=== PATIENT | male | born 1950 | race Caucasian/White ===

== ENCOUNTER 2017-06-06 15:05 | Emergency (ER) | payer OTHER ==
[2017-06-06 15:20] VITALS: BP 144/74
--- NOTE | 2017-06-06 15:23 | EDM.PDOC ---
ED HPI GENERAL MEDICAL PROBLEM - General Chief Complaint: Neuro Symptoms/Deficits Stated Complaint[facility] Time Seen by Provider: 06/06/17 15:59 Source of Information: Reports: Patient History Limitations: Reports: No Limitations - History of Present Illness INITIAL COMMENTS - FREE TEXT/NARRATIVE: lt sided weakness patient states that yesterday while seated in his arm chair he suddenly felt left sided weakness in that he was listing to the left side. Reach over and pull himself back into the seated position. States symptoms didn' t last very long perhaps 5 minutes and then they seem to improve. He said previous strokes 2. He is a mildly prominent right sided hemiparesis. Initially his speech was quite badly affected but is improved dramatically. He had a headache yesterday but nothing today. Denies falls or injuries. He is on blood thinner Plavix. He also takes aspirin daily. [facility] and he [place] if he's had ultrasound of his carotid arteries her MRI of his brain or echocardiogram completed in the past. He has chronic hypertension and quite bad dyslipidemia. He states his balance is better today history of trouble walking. But he certainly no worse than he was yesterday. Note he is walking today on his own volition without any. Onset: Sudden Onset Date: 06/05/17 Onset Time: 14:30 Duration: Hour(s): Location: Reports: Upper Extremity, Left, Lower Extremity, Left Quality: Reports: Other (Sudden onset of left-sided weakness yesterday afternoon.) Severity: Moderate (Symptoms only lasted for 5 minutes.) Improves with: Reports: Other (Spontaneous improvement over for 5 minutes.) Worsens with: Reports: None Context: Denies: Activity, Exercise, Lifting, Sick Contact, Trauma, Other Associated Symptoms: Reports: Cough. 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: Reports: Other (see below) (None.) - Related Data Allergies Allergy/AdvReac Type Severity Reaction Status Date / Time amlodipine Allergy Cannot Verified 07/15/16 15:02 Remember aspirin Allergy Hives Verified 07/15/16 15:02 carvedilol Allergy Cannot Verified 07/15/16 15:02 Remember codeine Allergy Cannot Verified 07/15/16 15:02 Remember lisinopril Allergy Cannot Verified 07/15/16 15:02 Remember meperidine [From Demerol] Allergy Cannot Verified 07/15/16 15:02 Remember Penicillins Allergy Airway Verified 07/15/16 15:02 Tightness thioridazine [From Mellaril] Allergy Cannot Verified 07/15/16 15:02 Remember propanolol. Allergy Cannot Uncoded 07/15/16 15:02 Remember Home Meds: Home Meds Albuterol Sulfate [Proair Respiclick] 2 puff IH Q6H PRN 07/15/16 [History] Allopurinol [Zyloprim] 100 mg PO DAILY 07/15/16 [History] Cholecalciferol (Vitamin D3) [Vitamin D3] 2 tab PO DAILY 07/15/16 [History] Clobetasol Propionate [Temovate] 1 applic TP BID 07/15/16 [History] Clopidogrel [Plavix] 75 mg PO BEDTIME 07/15/16 [History] Docusate Sodium 100 mg PO BID 07/15/16 [History] Donepezil [Aricept] 5 mg PO BEDTIME 07/15/16 [History] Ferrous Sulfate 1 tab PO DAILY 07/15/16 [History] Finasteride [Proscar] 1 tab PO DAILY 07/15/16 [History] Gabapentin [Neurontin] 600 mg PO TID 07/15/16 [History] Lidocaine 4% [Xylocaine 4% Top Soln] 1 applic TP BID PRN 07/15/16 [History] Losartan [Cozaar] 2 tab PO DAILY 07/15/16 [History] Losartan [Cozaar] 25 mg PO DAILY 07/15/16 [History] [place]-3 Fatty Acids [Fish Oil] 1,000 mg PO BID 07/15/16 [History] Omeprazole 20 mg PO BID 07/15/16 [History] Zolpidem Tartrate 10 mg PO BEDTIME PRN 07/15/16 [History] atorvaSTATin Calcium [Atorvastatin Calcium] 0.5 tab PO DAILY 07/15/16 [History] Past Medical History Cardiovascular History: Reports: High Cholesterol, Hypertension Respiratory History: Reports: Asthma, Sleep Apnea Gastrointestinal History: Reports: GERD, PUD Musculoskeletal History: Reports: Gout Neurological History: Reports: CVA (2 with right hemiparesis and impaired speech transiently.), Migraines Psychiatric History: Reports: Dementia - Past Surgical History GI Surgical History: Reports: Appendectomy, Hernia, Abdominal Musculoskeletal Surgical History: Reports: Arthroscopic Knee, Shoulder Surgery Social & Family History - Tobacco Use Smoking Status *Q: Former Smoker - Caffeine Use Caffeine Use: Reports: Coffee - Recreational Drug Use Recreational Drug Use: No - Living Situation & Occupation Living situation: Reports: Occupation: Retired ED ROS GENERAL - Review of Systems Review Of Systems: See Below Constitutional: Reports: Malaise, Weakness, Fatigue. Denies: Fever, Chills, Night Sweats, Diaphoresis, Decreased Appetite, Weight Loss, Weight Gain HEENT: Reports: Glasses, Vision Change (States he can't see out of his right eye since his initial stroke.) Respiratory: Reports: Shortness of Breath (On exertion), Cough Cardiovascular: Reports: Blood Pressure Problem, Dyspnea on Exertion ( Chronically), Lightheadedness. Denies: Chest Pain (Occasional cough.), Claudication, Edema (Sometimes), Orthopnea (Usually well-controlled with medication) Endocrine: Reports: Fatigue GI/Abdominal: Reports: Constipation : Reports: Frequency, Other (Nocturia 3.) Musculoskeletal: Reports: Back Pain (Knees and hips), Joint Pain Skin: Reports: No Symptoms ( back pain), Bruising (Bruises easily because of being on Plavix and aspirin.) Neurological: Reports: Dizziness, Headache, Difficulty Walking (Right side due to right-sided weakness.), Weakness, Gait Disturbance (Since initial stroke.). Denies: Confusion, Numbness, Paresthesia, Syncope (Yesterday but not today), Tingling, Tremors, Trouble Speaking, Change in Speech Psychiatric: Reports: No Symptoms Hematologic/Lymphatic: Reports: No Symptoms Immunologic: Reports: No Symptoms ED EXAM, NEURO - Physical Exam Exam: See Below Exam Limited By: No Limitations General Appearance: Alert, WD/WN, No Apparent Distress Eye Exam: Bilateral Eye: PERRL Throat/Mouth: Normal Inspection, Normal Lips, Normal Oropharynx Head Exam: Atraumatic, Normocephalic Neck: Normal Inspection, Supple, Non-Tender, Full Range of Motion. No: Lymphadenopathy (L), Lymphadenopathy (R) Respiratory/Chest: No Respiratory Distress, Lungs Clear, Normal Breath Sounds, No Accessory Muscle Use Cardiovascular: Normal Peripheral Pulses, Regular Rate, Rhythm, No Edema, No Murmur GI/Abdominal: Normal Bowel Sounds, Soft, Non-Tender, No Organomegaly, No Distention, No Abnormal Bruit, No Mass Neurological: Alert, Normal Mood/Affect, Normal Dorsiflexion, CN II-XII Intact, Normal Plantar Flexion, Normal Reflexes, Oriented x 3, Difficulty Walking. No: Babinski, Straight Leg Raise (L), Straight Leg Raise (R) DTR: 0: Achilles (R), Achilles (L), 1+: Patella (R), Patella (L) Back Exam: Normal Inspection, Full Range of Motion Extremities: Normal Inspection, Normal Range of Motion, No Pedal Edema Psychiatric: Normal Affect, Normal Mood Skin Exam: Warm, Dry, Intact, Normal Color, No Rash EKG INTERPRETATION EKG Date: 06/06/17 Time: 15:40 Rhythm: Other Rate (Beats/Min): 60 [place]: Normal P-Wave: Absent QRS: Other (Initial poor R-wave progression.) ST-T: Normal QT: Prolonged (Mildly prolonged) EKG Interpretation Comments: Abnormal ECG Course - Vital Signs Last Recorded V/S: Last Vital Signs Temp 36.1 C 06/06/17 15:19 Pulse 73 06/06/17 15:19 Resp 20 06/06/17 15:19 BP 144/74 H 06/06/17 15:19 Pulse Ox 96 06/06/17 15:19 - Orders/Labs/Meds Orders: Active Orders 24 hr Category Date Time Status EKG Documentation Completion [RC] STAT Care 06/06/17 15:25 Active Peripheral IV Care [RC] . DIRECTED Care 06/06/17 15:26 Active Sodium Chloride 0.9% [Saline Flush] Med 06/06/17 15:26 Active 10 ml FLUSH ASDIRECTED PRN Peripheral IV Insertion Adult [OM.PC] Stat Oth 06/06/17 15:26 Ordered Medication Orders Sodium Chloride (Saline Flush) 10 ml FLUSH ASDIRECTED PRN PRN Reason: Keep Vein Open Labs: Laboratory Tests 06/06/17 06/06/17 06/06/17 Range/Units 15:16 15:16 15:16 WBC 7.12 (4.23-9.07) K/mm3 RBC 4.99 (4.63-6.08) M/mm3 Hgb 14.6 (13.7-17.5) gm/L Hct 42.6 (40.1-51.0) % MCV 85.4 (79.0-92.2) fl MCH 29.3 (25.7-32.2) pg MCHC 34.3 (32.2-35.5) g/dl RDW Std Deviation 40.9 (35.1-43.9) fL Plt Count 185 (163-337) K/mm3 MPV 10.2 (9.4-12.3) fl Neutrophils % (Manual) 53 (40-60) % Band Neutrophils % 0 (0-10) % Lymphocytes % (Manual) 36 (20-40) % Atypical Lymphs % 0 % Monocytes % (Manual) 8 (2-10) % Eosinophils % (Manual) 1 (0.8-7.0) % Basophils % (Manual) 2 H (0.2-1.2) Platelet Estimate Adequate RBC Morph Comment Normal PT 9.6 (8.0-13.0) SECONDS INR 0.89 APTT 26 (22-36) SECONDS Sodium 141 (136-145) mEq/L Potassium 3.8 (3.5-5.1) mEq/L Chloride 107 (98-107) mEq/L Carbon Dioxide 23 (21-32) mEq/L Anion Gap 14.8 (5-15) BUN 19 H (7-18) mg/dL Creatinine 1.5 H (0.7-1.3) mg/dL Est Cr Clr Drug Dosing TNP Estimated GFR (MDRD) 47 (>60) mL/min BUN/Creatinine Ratio 12.7 L (14-18) Glucose 134 H (80-115) mg/dL POC Glucose (80-115) mg/dL Calcium 8.8 (8.5-10.1) mg/dL Total Bilirubin 0.3 (0.2-1.0) mg/dL AST 15 (15-37) U/L ALT 29 (16-63) U/L Alkaline Phosphatase 109 (46-116) U/L NT-Pro-B Natriuret Pep (0-125) pg/mL Total Protein 6.9 (6.4-8.2) g/dl Albumin 3.5 (3.4-5.0) g/dl Globulin 3.4 gm/dL Albumin/Globulin Ratio 1.0 (1-2) 06/06/17 06/06/17 Range/Units 15:16 15:27 WBC (4.23-9.07) K/mm3 RBC (4.63-6.08) M/mm3 Hgb (13.7-17.5) gm/L Hct (40.1-51.0) % MCV (79.0-92.2) fl MCH (25.7-32.2) pg MCHC (32.2-35.5) g/dl RDW Std Deviation (35.1-43.9) fL Plt Count (163-337) K/mm3 MPV (9.4-12.3) fl Neutrophils % (Manual) (40-60) % Band Neutrophils % (0-10) % Lymphocytes % (Manual) (20-40) % Atypical Lymphs % % Monocytes % (Manual) (2-10) % Eosinophils % (Manual) (0.8-7.0) % Basophils % (Manual) (0.2-1.2) Platelet Estimate RBC Morph Comment PT (8.0-13.0) SECONDS INR APTT (22-36) SECONDS Sodium (136-145) mEq/L Potassium (3.5-5.1) mEq/L Chloride (98-107) mEq/L Carbon Dioxide (21-32) mEq/L Anion Gap (5-15) BUN (7-18) mg/dL Creatinine (0.7-1.3) mg/dL Est Cr Clr Drug Dosing Estimated GFR (MDRD) (>60) mL/min BUN/Creatinine Ratio (14-18) Glucose (80-115) mg/dL POC Glucose 110 (80-115) mg/dL Calcium (8.5-10.1) mg/dL Total Bilirubin (0.2-1.0) mg/dL AST (15-37) U/L ALT (16-63) U/L Alkaline Phosphatase (46-116) U/L NT-Pro-B Natriuret Pep 15 (0-125) pg/mL Total Protein (6.4-8.2) g/dl Albumin (3.4-5.0) g/dl Globulin gm/dL Albumin/Globulin Ratio (1-2) Meds: Medications Generic Name Dose Route Start Last Admin Trade Name Freq PRN Reason Stop Dose Admin Sodium Chloride 10 ml 06/06/17 15:26 Saline Flush FLUSH ASDIRECTED PRN Keep Vein Open - Radiology Interpretation Free Text/Narrative:: 58-year-old male presents to the ED with strokelike symptoms. He reports that yesterday while seated in his easy chair he did develop sudden onset of listing to the left side. It help his arm back into his lap. States his symptoms lasted less than 5 minutes and seemed to improve. He contacted the [facility] whom advised him to seek emergency medicine care. When Yadi called today he decided to take their advice and he showed up in the ED. He states now he is no worse than he was yesterday his balances better than it was yesterday after this event. He said previous CVA 2 with right-sided hemiparesis. Initially he had some quite marked dysarthria with his initial stroke (returned nearly to completely normal. He denies any falls or recent closed head injuries. He remains on aspirin and Plavix daily. Plan CT head to be done routine labs ECG. - Re-Assessments/Exams Free Text/Narrative Re-Assessment/Exam: 06/06/17 16:00 CT does suggest a small petechial hemorrhage in the left periventricular white matter posterior to the basal ganglia. Hounsfield units suggest measurement of blood not calcification. No other intracranial findings of hemorrhage are identified. His ECG reveals atrial paced rhythm at 60/m. 06/06/1628:Labs are back. White count is 7.12 with 53% neutrophils and no bands. Hemoglobin is good at 14.6 with hematocrit of 42.6. Platelets are 185, 000. PT is 9.6 INR 0.89 PTT is 26. Sodium 141 potassium 3.8. Cord 107 bicarbonate 23. And a gap is 14.8 BUNs 19 creatinine is 1.5. EGFR is 47. Glucose 134 the remainder the chemistry is normal. 06/06/17 16:54 Medlist reveals that he is on Plavix but he does not have any stents and it sounds like he was placed on it because his heart failure and his poor ejection fraction. I therefore would withhold for 5 days until the intracranial bleed settles down. Departure - Departure Time of Disposition: 17:01 Disposition: Home, Self-Care 01 Condition: Fair Clinical Impression: Cerebrovascular accident - Discharge Information Referrals: Alva Roach DO [Primary Care Provider] - Forms: ED Department Discharge Additional Instructions: Evaluation the emergent today in regards to sudden onset of with this while sitting in your easy chair a few days ago. He with a disrupted balance for a few days but today you feel back to near normal. On the advice of the [facility] you tend to the ED. History of strokes 2 in the past. Atrial paced rhythm for your heart. CT of the brain revealed a pinpoint hemorrhage in the right parietal lobe near the basal ganglia which could've accounted for your symptoms. It is very small at this time and since you are not having any major deficits at this time I'm going to allow you to go home. Your lab work also proved to be completely normal. Treatment is to stop the Plavix for the next 5 days and then you may resume it as of next Friday. Needs to be done with your parts consultant to see whether or not she wanted to continue with this medication or whether you can convert to aspirin only. Has a lot of hot whether or not you had blood clots in the past and how well your heart is pumping. It comes down to a risk-benefit ratio and should be made by the safety compliance specialist after echocardiogram is completed. All other medications at this time are to be continued. - My Orders Last 24 Hours: My Active Orders 06/06/17 15:25 EKG Documentation Completion [RC] STAT 06/06/17 15:26 Peripheral IV Care [RC] . DIRECTED Sodium Chloride 0.9% [Saline Flush] 10 ml FLUSH ASDIRECTED PRN Peripheral IV Insertion Adult [OM.PC] Stat - Assessment/Plan Last 24 Hours: My Active Orders 06/06/17 15:25 EKG Documentation Completion [RC] STAT 06/06/17 15:26 Peripheral IV Care [RC] . DIRECTED Sodium Chloride 0.9% [Saline Flush] 10 ml FLUSH ASDIRECTED PRN Peripheral IV Insertion Adult [OM.PC] Stat
[2017-06-06] MEDS ORDERED: Sodium Chloride 0.9% 10 ML Syringe FLUSH PRN (15:26)
--- NOTE | 2017-06-06 15:46 | CT ---
Head CT Technique: Multiple axial sections through the brain were obtained. Comparison: No previous intracranial imaging. Findings: Ventricles along the basal cisterns and sulci over convexities are mildly prominent. Small high density dot is noted within the left periventricular white matter having Hounsfield unit measurements of blood and not calcification. Very minimal petechial hemorrhage is possible. No other findings of intracranial hemorrhage are seen. No midline shift or mass effect is seen. No other abnormal parenchymal densities are seen. Impression: 1. Possible small petechial hemorrhage within the left periventricular white matter. 2. No additional abnormality is identified on noncontrast head CT study. Given the patient's symptoms, MRI could be considered to further evaluate. Diagnostic code #5
== END 2017-06-06 17:20 | disposition home or self-care (01) ==
LOC: JD.ED 15:05
DX: I63.9 Cerebral infarction, unspecified (principal); I10 Essential (primary) hypertension; Z88.8 Allergy status to other drugs, medicaments and biological substances; Z88.0 Allergy status to penicillin; Z88.6 Allergy status to analgesic agent; Z79.899 Other long term (current) drug therapy; Z87.891 Personal history of nicotine dependence
CPT/HCPCS: 36415; 70450; 70450-26; 80053; 82962; 83880; 85025; 85610; 85730; 93005; 93010; 99285; 99285-25

== ENCOUNTER 2017-09-14 17:33 | Emergency (ER) | payer OTHER ==
[2017-09-14] MEDS ORDERED: Sodium Chloride 0.9% 10 ML Syringe FLUSH PRN (17:43)
[2017-09-14 17:51] VITALS: BP 168/84
--- NOTE | 2017-09-14 18:15 | CT ---
Head CT Technique: Multiple axial sections through the brain were obtained. Intravenous contrast was not utilized. Comparison: Prior head CT exam of 06/06/17. Findings: Ventricles along with basal cisterns and sulci over the convexities are mildly prominent. Small area of increased density is seen within the left periventricular white matter within the parietal region which is stable from prior exam. No other abnormal parenchymal densities are seen. No evidence of intracranial hemorrhage. No midline shift or mass effect is seen. Bone window settings were reviewed which shows no acute calvarial abnormality. Visualized sinuses are clear. Impression: 1. Minimal area of increased density which on prior study was felt to represent small petechial hemorrhage but remains stable on current exam which is therefore compatible with small area of incidental dystrophic calcification. 2. Mild atrophy is seen. 3. No acute intracranial abnormality is identified. Diagnostic code #2
--- NOTE | 2017-09-14 19:03 | EDM.PDOC ---
ED HPI GENERAL MEDICAL PROBLEM - General Chief Complaint: General Stated Complaint: R EYE PAIN Time Seen by Provider: 09/14/17 17:42 Source of Information: Reports: Patient History Limitations: Reports: No Limitations - History of Present Illness INITIAL COMMENTS - FREE TEXT/NARRATIVE: The patient presents with right ear pain and right sided facial weakness. He said yesterday he noticed pain to the right ear over the tragus. The pain has gotten worse and now he has more pain and edema behind he ear. This morning he developed right sided facial weakness. He cannot move his right forehead and he cannot close his eyelid. When he drinks the liquids would come out the right side of his mouth. He denies numbness or weakness in his arms or legs. He has no fever, chills, cough, chest pain, shortness of breath, abdominal pain , nausea or vomiting. He says he has had a stroke before and also [place] palsey. Onset: Gradual Duration: Hour(s): Location: Reports: Face Quality: Reports: Sharp Severity: Moderate Improves with: Reports: None Worsens with: Reports: None Associated Symptoms: Reports: No Other Symptoms Right Ear Pain Score (Numeric/FACES): 8 - Related Data Allergies Allergy/AdvReac Type Severity Reaction Status Date / Time amlodipine Allergy Cannot Verified 07/15/16 15:02 Remember aspirin Allergy Hives Verified 07/15/16 15:02 carvedilol Allergy Cannot Verified 07/15/16 15:02 Remember codeine Allergy Cannot Verified 07/15/16 15:02 Remember lisinopril Allergy Cannot Verified 07/15/16 15:02 Remember meperidine [From Demerol] Allergy Cannot Verified 07/15/16 15:02 Remember Penicillins Allergy Airway Verified 07/15/16 15:02 Tightness thioridazine [From Mellaril] Allergy Cannot Verified 07/15/16 15:02 Remember propanolol. Allergy Cannot Uncoded 07/15/16 15:02 Remember Home Meds: Home Meds Albuterol Sulfate [Proair Respiclick] 2 puff IH Q6H PRN 07/15/16 [History] Allopurinol [Zyloprim] 100 mg PO DAILY 07/15/16 [History] Cholecalciferol (Vitamin D3) [Vitamin D3] 2 tab PO DAILY 07/15/16 [History] Clobetasol Propionate [Temovate] 1 applic TP BID 07/15/16 [History] Clopidogrel [Plavix] 75 mg PO BEDTIME 07/15/16 [History] Docusate Sodium 100 mg PO BID 07/15/16 [History] Donepezil [Aricept] 5 mg PO BEDTIME 07/15/16 [History] Ferrous Sulfate 1 tab PO DAILY 07/15/16 [History] Finasteride [Proscar] 1 tab PO DAILY 07/15/16 [History] Gabapentin [Neurontin] 600 mg PO TID 07/15/16 [History] Lidocaine 4% [Xylocaine 4% Top Soln] 1 applic TP BID PRN 07/15/16 [History] Losartan [Cozaar] 2 tab PO DAILY 07/15/16 [History] Losartan [Cozaar] 25 mg PO DAILY 07/15/16 [History] [place]-3 Fatty Acids [Fish Oil] 1,000 mg PO BID 07/15/16 [History] Omeprazole 20 mg PO BID 07/15/16 [History] Zolpidem Tartrate 10 mg PO BEDTIME PRN 07/15/16 [History] atorvaSTATin Calcium [Atorvastatin Calcium] 0.5 tab PO DAILY 07/15/16 [History] Hydrocodone/Acetaminophen [Hydrocodon-Acetaminophen 5-325] 1 - 2 each PO Q6HR PRN #20 tablet 09/14/17 [Rx] Prednisone [IJD: predniSONE] 60 mg PO WITHBREAKFAST #21 tab 09/14/17 [Rx] valACYclovir HCl [Valacyclovir] 1,000 mg PO TID #21 tablet 09/14/17 [Rx] Past Medical History Cardiovascular History: Reports: High Cholesterol, Hypertension Other Cardiovascular History: dual chamber Respiratory History: Reports: Asthma, Sleep Apnea Gastrointestinal History: Reports: GERD, PUD Musculoskeletal History: Reports: Gout, Other (See Below) Other Musculoskeletal History: neuropathy Neurological History: Reports: CVA, Migraines Psychiatric History: Reports: Dementia - Past Surgical History HEENT Surgical History: Reports: Tonsillectomy GI Surgical History: Reports: Appendectomy, Hernia, Abdominal Musculoskeletal Surgical History: Reports: Arthroscopic Knee, Shoulder Surgery Social & Family History - Family History Family Medical History: Noncontributory - Tobacco Use Smoking Status *Q: Former Smoker Used Tobacco, but Quit: Yes Month Tobacco Last Used: 30 years ago - Caffeine Use Caffeine Use: Reports: Coffee - Recreational Drug Use Recreational Drug Use: No - Living Situation & Occupation Living situation: Reports: Occupation: Retired ED ROS GENERAL - Review of Systems Review Of Systems: See Below Constitutional: Reports: No Symptoms HEENT: Reports: Eye Pain Respiratory: Reports: No Symptoms Cardiovascular: Reports: No Symptoms Endocrine: Reports: No Symptoms GI/Abdominal: Reports: No Symptoms : Reports: No Symptoms Musculoskeletal: Reports: No Symptoms Skin: Reports: Other (Rash to right ear) ED EXAM, GENERAL - Physical Exam Exam: See Below Exam Limited By: No Limitations General Appearance: Alert, No Apparent Distress Eye Exam: Bilateral Eye: EOMI, PERRL Ears: Other (Small lesion to the tragus with erythema and edema to behind the right ear. Normal canal and normal TM) Nose: Normal Inspection Throat/Mouth: Normal Inspection Head: Atraumatic, Normocephalic Neck: Normal Inspection Respiratory/Chest: No Respiratory Distress, Lungs Clear, Normal Breath Sounds Cardiovascular: Regular Rate, Rhythm, No Edema, No Murmur GI/Abdominal: Soft, Non-Tender, No Organomegaly, No Mass Back Exam: Normal Inspection Extremities: Normal Inspection Neurological: Alert, Oriented, Other (He cannot move his right forehead. He has right sided facial droop. He has no numbnes or weakness to his arms or legs.) EKG INTERPRETATION EKG Date: 09/14/17 Time: 18:35 Rhythm: Other (atrial paced rhythm) Course - Vital Signs Last Recorded V/S: Last Vital Signs Temp 97.2 F 09/14/17 17:43 Pulse 76 09/14/17 17:43 Resp 18 09/14/17 17:43 BP 168/84 H 09/14/17 17:43 Pulse Ox 95 09/14/17 17:43 - Orders/Labs/Meds Orders: Active Orders 24 hr Category Date Time Status Cardiac Monitoring [RC] . DIRECTED Care 09/14/17 17:43 Active EKG Documentation Completion [RC] STAT Care 09/14/17 17:43 Active Peripheral IV Care [RC] . DIRECTED Care 09/14/17 17:44 Active Acetaminophen/HYDROcodone [[place] 325-5 MG] Med 09/14/17 19:19 Once 2 tab PO ONETIME ONE Sodium Chloride 0.9% [Saline Flush] Med 09/14/17 17:43 Active 10 ml FLUSH ASDIRECTED PRN Peripheral IV Insertion Adult [OM.PC] Stat Oth 09/14/17 17:43 Ordered Medication Orders Sodium Chloride (Saline Flush) 10 ml FLUSH ASDIRECTED PRN PRN Reason: Keep Vein Open Labs: Laboratory Tests 09/14/17 09/14/17 09/14/17 Range/Units 17:49 17:50 17:50 WBC 5.37 (4.23-9.07) K/mm3 RBC 4.86 (4.63-6.08) M/mm3 Hgb 14.4 (13.7-17.5) gm/L Hct 42.1 (40.1-51.0) % MCV 86.6 (79.0-92.2) fl MCH 29.6 (25.7-32.2) pg MCHC 34.2 (32.2-35.5) g/dl RDW Std Deviation 41.9 (35.1-43.9) fL Plt Count 210 (163-337) K/mm3 MPV 9.7 (9.4-12.3) fl Neut % (Auto) 46.8 (34.0-67.9) % Lymph % (Auto) 38.9 (21.8-53.1) % [place] % (Auto) 11.7 (5.3-12.2) % Eos % (Auto) 2.0 (0.8-7.0) Baso % (Auto) 0.4 (0.1-1.2) % Neut # (Auto) 2.51 (1.78-5.38) K/mm3 Lymph # (Auto) 2.09 (1.32-3.57) K/mm3 [place] # (Auto) 0.63 (0.30-0.82) K/mm3 Eos # (Auto) 0.11 (0.04-0.54) K/mm3 Baso # (Auto) 0.02 (0.01-0.08) K/mm3 PT 9.7 (8.0-13.0) SECONDS INR 0.90 APTT 26 (22-36) SECONDS Sodium (136-145) mEq/L Potassium (3.5-5.1) mEq/L Chloride (98-107) mEq/L Carbon Dioxide (21-32) mEq/L Anion Gap (5-15) BUN (7-18) mg/dL Creatinine (0.7-1.3) mg/dL Est Cr Clr Drug Dosing mL/min Estimated GFR (MDRD) (>60) mL/min BUN/Creatinine Ratio (14-18) Glucose (80-115) mg/dL POC Glucose 107 (80-115) mg/dL Calcium (8.5-10.1) mg/dL Total Bilirubin (0.2-1.0) mg/dL AST (15-37) U/L ALT (16-63) U/L Alkaline Phosphatase (46-116) U/L Troponin I (0.00-0.056) ng/mL Total Protein (6.4-8.2) g/dl Albumin (3.4-5.0) g/dl Globulin gm/dL Albumin/Globulin Ratio (1-2) 09/14/17 Range/Units 17:50 WBC (4.23-9.07) K/mm3 RBC (4.63-6.08) M/mm3 Hgb (13.7-17.5) gm/L Hct (40.1-51.0) % MCV (79.0-92.2) fl MCH (25.7-32.2) pg MCHC (32.2-35.5) g/dl RDW Std Deviation (35.1-43.9) fL Plt Count (163-337) K/mm3 MPV (9.4-12.3) fl Neut % (Auto) (34.0-67.9) % Lymph % (Auto) (21.8-53.1) % [place] % (Auto) (5.3-12.2) % Eos % (Auto) (0.8-7.0) Baso % (Auto) (0.1-1.2) % Neut # (Auto) (1.78-5.38) K/mm3 Lymph # (Auto) (1.32-3.57) K/mm3 [place] # (Auto) (0.30-0.82) K/mm3 Eos # (Auto) (0.04-0.54) K/mm3 Baso # (Auto) (0.01-0.08) K/mm3 PT (8.0-13.0) SECONDS INR APTT (22-36) SECONDS Sodium 142 (136-145) mEq/L Potassium 4.0 (3.5-5.1) mEq/L Chloride 106 (98-107) mEq/L Carbon Dioxide 25 (21-32) mEq/L Anion Gap 15.0 (5-15) BUN 11 (7-18) mg/dL Creatinine 1.4 H (0.7-1.3) mg/dL Est Cr Clr Drug Dosing 45.57 mL/min Estimated GFR (MDRD) 50 (>60) mL/min BUN/Creatinine Ratio 7.9 L (14-18) Glucose 114 (80-115) mg/dL POC Glucose (80-115) mg/dL Calcium 8.6 (8.5-10.1) mg/dL Total Bilirubin 0.3 (0.2-1.0) mg/dL AST 22 (15-37) U/L ALT 33 (16-63) U/L Alkaline Phosphatase 115 (46-116) U/L Troponin I < 0.017 (0.00-0.056) ng/mL Total Protein 7.3 (6.4-8.2) g/dl Albumin 3.5 (3.4-5.0) g/dl Globulin 3.8 gm/dL Albumin/Globulin Ratio 0.9 L (1-2) Meds: Medications Generic Name Dose Route Start Last Admin Trade Name Freq PRN Reason Stop Dose Admin Sodium Chloride 10 ml 09/14/17 17:43 Saline Flush FLUSH ASDIRECTED PRN Keep Vein Open Discontinued Medications Generic Name Dose Route Start Last Admin Trade Name Freq PRN Reason Stop Dose Admin Prednisone 60 mg 09/14/17 19:13 Prednisone PO 09/14/17 19:14 ONETIME ONE Valacyclovir HCl 1,000 mg 09/14/17 19:13 Valtrex PO 09/14/17 19:14 ONETIME ONE - Re-Assessments/Exams Free Text/Narrative Re-Assessment/Exam: 09/14/17 19:10 I ordered an IV saline lock, EKG, CT of his head and labs. His EKG is paced. His CT shows minimal area of increased density which on prior study was felt to represent small petechial hemorrhage but remains stable on current exam which is therefore compatible with small area of incidental dystrophic calcification. Mild atrophy is seen. No acute intracranial abnormality is identified. His CBC and CMP look good. His troponin was negative. 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 I will give him a dose of valacyclivir and some prednisone. I will then get him on a prescription for both. Departure - Departure Time of Disposition: 19:20 Disposition: Home, Self-Care 01 Condition: Good Clinical Impression: Mcgregor's palsy Shingles Qualifiers: Herpes zoster complications: with nervous system involvement Herpes zoster neurologic complication detail: other postherpetic nervous system involvement Qualified Code(s): B02.29 - Other postherpetic nervous system involvement - Discharge Information Prescriptions: Hydrocodone/Acetaminophen [Hydrocodon-Acetaminophen 5-325] 1 - 2 each PO Q6HR PRN #20 tablet PRN Reason: Pain Prednisone [IJD: predniSONE] 60 mg PO WITHBREAKFAST #21 tab valACYclovir HCl [Valacyclovir] 1,000 mg PO TID #21 tablet Referrals: Alva Roach DO [Primary Care Provider] - 1 Week Forms: ED Department Discharge Additional Instructions: Take the prednisone 60mg daily for 1 week. Take the valacyclivir 1,00mg 3 times per day for 1 week. Take the hydrocodone as needed for pain. Put antibiotic ointment on the sore on your ear to avoid infection. Please return if you are worse. Follow up with Dr Roach this week. - My Orders Last 24 Hours: My Active Orders 09/14/17 17:43 Cardiac Monitoring [RC] . DIRECTED EKG Documentation Completion [RC] STAT Sodium Chloride 0.9% [Saline Flush] 10 ml FLUSH ASDIRECTED PRN Peripheral IV Insertion Adult [OM.PC] Stat 09/14/17 17:44 Peripheral IV Care [RC] . DIRECTED 09/14/17 19:19 Acetaminophen/HYDROcodone [[place] 325-5 MG] 2 tab PO ONETIME ONE - Assessment/Plan Last 24 Hours: My Active Orders 09/14/17 17:43 Cardiac Monitoring [RC] . DIRECTED EKG Documentation Completion [RC] STAT Sodium Chloride 0.9% [Saline Flush] 10 ml FLUSH ASDIRECTED PRN Peripheral IV Insertion Adult [OM.PC] Stat 09/14/17 17:44 Peripheral IV Care [RC] . DIRECTED 09/14/17 19:19 Acetaminophen/HYDROcodone [[place] 325-5 MG] 2 tab PO ONETIME ONE
[2017-09-14] MEDS ORDERED: predniSONE 20 MG Tab PO ONE (19:13)
[2017-09-14] MEDS ORDERED: valACYclovir 1,000 MG Tab PO ONE (19:13)
[2017-09-14] MEDS ORDERED: Acetaminophen/HYDROcodone 325-5 MG Tab PO ONE (19:19)
[2017-09-14] MEDS ORDERED: Take Home: Acetaminophen/HYDROcodone 325-5 MG, 5 Tab Pack ONE (19:45)
[2017-09-14] MEDS ORDERED: valACYclovir 500 MG Tab PO ONE (20:06)
[2017-09-14] MEDS ORDERED: valACYclovir 500 MG Tab ONE (20:10)
== END 2017-09-14 20:08 | disposition home or self-care (01) ==
LOC: JD.ED 17:33
DX: G51.0 Bell's palsy (principal); B02.29 Other postherpetic nervous system involvement; E78.00 Pure hypercholesterolemia, unspecified; I10 Essential (primary) hypertension; J45.909 Unspecified asthma, uncomplicated; Z88.6 Allergy status to analgesic agent; Z88.8 Allergy status to other drugs, medicaments and biological substances; Z88.5 Allergy status to narcotic agent; Z88.0 Allergy status to penicillin; Z79.899 Other long term (current) drug therapy; Z87.891 Personal history of nicotine dependence
CPT/HCPCS: 36415; 70450; 80053; 82962; 84484; 85025; 85610; 85730; 93005; 99284; A9270; J7050

== ENCOUNTER 2021-09-12 07:42 | Day surgery (SDC) | payer MEDICARE, OTHER ==
[~2021-09-12 07:42] MED LIST: Acetaminophen 325 MG Tab PO SCH; Dexamethasone 4 MG/ML 5 ML MDV ONE; Dexmedetomidine 200 MCG/2 ML SDV ONE; Lactated Ringers 1,000 ML IV SCH; Lidocaine 1%/Sod Bicarbonate in NS 8.4% 1 ML Syringe IDERM PRN; Midazolam 1 MG/ML 2 ML SDV ONE; Pregabalin 25 MG Cap PO SCH; Ropivacaine 0.5% 5 MG/ML 30 ML SDV ONE; Sodium Chloride 0.9% 10 ML Syringe FLUSH PRN; fentaNYL 100 MCG/2 ML SDV ONE; oxyCODONE ER 10 MG TAB.ER PO SCH
[2021-09-12] MEDS ORDERED: Vancomycin 1 GM SDV ONE ×2 (08:25)
[2021-09-12 08:33] VITALS: PULSE 60
[2021-09-12] MEDS ORDERED: Propofol 200 MG/20 ML SDV ONE ×2 (08:56→10:00)
[2021-09-12] MEDS ORDERED: Sodium Chloride 0.9% 10 ML Syringe FLUSH SCH (09:00)
[2021-09-12] MEDS ORDERED: ceFAZolin 1 GM Vial ONE (09:21)
[2021-09-12] MEDS ORDERED: Lidocaine 1% 2 ML ONE (09:23)
[2021-09-12] MEDS ORDERED: fentaNYL 100 MCG/2 ML SDV IVPUSH PRN (10:37)
[2021-09-12] MEDS ORDERED: HYDROmorphone 0.5 MG/0.5 ML Syringe IVPUSH PRN (10:37)
[2021-09-12] MEDS ORDERED: oxyCODONE 5 MG Tab PO ONE (12:00)
[2021-09-12 14:08] VITALS: BP 122/68
== END 2021-09-12 13:55 | disposition home or self-care (01) ==
LOC: JD.SDS 07:42 → EDSTATUS 08:45 → JD.SDS 13:55
PROVIDERS: ATTEND Orthopaedic Surgery
DX: M19.011 Primary osteoarthritis, right shoulder (principal); M75.101 Unspecified rotator cuff tear or rupture of right shoulder, not specified as traumatic; I10 Essential (primary) hypertension; I25.10 Atherosclerotic heart disease of native coronary artery without angina pectoris; N40.0 Benign prostatic hyperplasia without lower urinary tract symptoms; M85.80 Other specified disorders of bone density and structure, unspecified site; G47.33 Obstructive sleep apnea (adult) (pediatric); Z88.8 Allergy status to other drugs, medicaments and biological substances; Z88.0 Allergy status to penicillin; Z79.899 Other long term (current) drug therapy
CPT/HCPCS: 23472; 73020; 76000; 97110; 97161; 97530; A9270; C1713; C1769; C1776; J0690; J1100; J2250; J2370; J2704; J2795; J3010; J3370; J7120; 01638; 64415; 76942; 99100

== ENCOUNTER 2023-08-31 21:54 | Emergency (ER) | payer OTHER ==
[2023-08-31] MEDS ORDERED: Sodium Chloride 0.9% 10 ML Syringe FLUSH PRN (22:25)
[2023-08-31 22:33] LABS: BASOPHILS PERCENT AUTO 0.3 % (0.0-1.0); EOSINOPHILS ABSOLUTE AUTO 0.2 K/mm3 (0.0-0.4); EOSINOPHILS PERCENT AUTO 1.6 % (0.0-6.0); HEMATOCRIT 40.6 % (42.0-52.0); HEMOGLOBIN 13.6 gm/dl (14.0-18.0); IMMATURE GRAN ABSOLUTE AUTO 0.03 K/mm3 (0.00-0.05); IMMATURE GRAN PERCENT AUTO 0.3 % (0.0-0.4); LYMPHOCYTES PERCENT AUTO 19.8 % (24.0-44.0); MEAN CORPUSCULAR HEMOGLOBIN 29.6 pg (28.0-32.0); MEAN CORPUSCULAR HGB CONC 33.5 g/dl (32.0-36.0); MEAN CORPUSCULAR VOLUME 88.3 fl (83.0-99.0); MEAN PLATELET VOLUME 10.3 fl (9.4-12.4); MONOCYTES ABSOLUTE AUTO 1.1 K/mm3 (0.0-0.8); MONOCYTES PERCENT AUTO 10.3 % (0.0-8.0); NEUTROPHILS ABSOLUTE AUTO 6.9 K/mm3 (1.8-7.7); NEUTROPHILS PERCENT AUTO 67.7 % (41.0-71.0); PLATELET COUNT,PLT 177 K/mm3 (150-400); WHITE BLOOD CELL COUNT,WBC 10.17 K/mm3 (3.9-11.3)
[2023-08-31] MEDS: Orphenadrine 60 MG/2 ML Inj IV ONE (22:43)
[2023-08-31] MEDS: Triamcinolone Acetonide 40 MG/ML 1 ML SDV INJECT ONE (22:43)
[2023-08-31] MEDS: Ketorolac 30 MG/ML SDV IVPUSH ONE (22:43)
[2023-08-31 22:45] LABS: A/G RATIO 0.9 (1-2); ALANINE AMINOTRANSFERASE,ALT 25 U/L (16-63); ALBUMIN 3.3 g/dl (3.4-5.0); ALKALINE PHOSPHATASE 102 U/L (46-116); ANION GAP 13.2 (5-15); ASPARTATE AMNIOTRANSFERASE,AST 11 U/L (15-37); BILIRUBIN TOTAL 0.3 mg/dL (0.2-1.0); BLOOD UREA NITROGEN,BUN 24 mg/dL (7-18); BUN/CREATININE RATIO 14.1 (14-18); CALCIUM 8.2 mg/dL (8.5-10.1); CARBON DIOXIDE,CO2 26 mEq/L (21-32); CHLORIDE,CL 106 mEq/L (98-107); CREATININE 1.7 mg/dL (0.7-1.3); ESTIMATED GFR 42 mL/min (>60); GLUCOSE RANDOM 105 mg/dL (70-99); MAGNESIUM 1.8 mg/dL (1.8-2.4); POTASSIUM,K 4.2 mEq/L (3.5-5.1); PROTEIN TOTAL,TP 6.9 g/dl (6.4-8.2); SODIUM,NA 141 mEq/L (136-145)
[2023-08-31 23:18] LABS: APPEARANCE,URINE CLEAR (Clear); BILIRUBIN,URINE NEGATIVE (Negative); COLOR,URINE YELLOW (Yellow); GLUCOSE,URINE NEGATIVE (Negative); KETONES,URINE NEGATIVE (Negative); LEUKOCYTE ESTERASE,URINE NEGATIVE (Negative); NITRITE,URINE NEGATIVE (Negative); OCCULT BLOOD,URINE NEGATIVE (Negative); PH,URINE 5.5 (5.0-8.0); PROTEIN,URINE NEGATIVE (Negative); UROBILINOGEN,URINE 0.2 (0.2-1.0)
[2023-08-31 23:24] LABS: BACTERIA,URINE FEW /hpf (FEW); EPITHELIAL CELLS,URINE 0-5 /hpf (0-5); HYALINE CASTS,URINE 0-5 /lpf (0-5); MUCUS,URINE MODERATE /hpf (FEW); RBC,URINE 0-5 /hpf (0-5); WBC,URINE 0-5 /hpf (0-5)
[2023-09-01 00:58] VITALS: BP 120/78; PULSE 78
== END 2023-09-01 01:07 | disposition home or self-care (01) ==
LOC: JD.ED 21:54
DX: M54.16 Radiculopathy, lumbar region (principal); M51.36 Other intervertebral disc degeneration, lumbar region; I10 Essential (primary) hypertension; K21.9 Gastro-esophageal reflux disease without esophagitis; E78.00 Pure hypercholesterolemia, unspecified; Z79.899 Other long term (current) drug therapy; Z88.0 Allergy status to penicillin; Z88.8 Allergy status to other drugs, medicaments and biological substances
CPT/HCPCS: 36415; 72131; 80053; 81001; 83735; 85025; 86140; 96372; 96374; 96375; 99284; J1885; J2360; J3301

== ENCOUNTER 2024-02-28 09:40 | Emergency (ER) | payer OTHER ==
[2024-02-28 10:35] LABS: APPEARANCE,URINE CLEAR (Clear); BILIRUBIN,URINE NEGATIVE (Negative); COLOR,URINE YELLOW (Yellow); GLUCOSE,URINE NEGATIVE (Negative); KETONES,URINE NEGATIVE (Negative); LEUKOCYTE ESTERASE,URINE NEGATIVE (Negative); NITRITE,URINE NEGATIVE (Negative); OCCULT BLOOD,URINE NEGATIVE (Negative); PH,URINE 5.5 (5.0-8.0); PROTEIN,URINE TRACE (Negative); UROBILINOGEN,URINE 0.2 (0.2-1.0)
[2024-02-28 10:45] LABS: BASOPHILS PERCENT AUTO 0.2 % (0.0-1.0); EOSINOPHILS ABSOLUTE AUTO 0.1 K/mm3 (0.0-0.4); EOSINOPHILS PERCENT AUTO 1.4 % (0.0-6.0); HEMOGLOBIN 14.8 gm/dl (14.0-18.0); IMMATURE GRAN ABSOLUTE AUTO 0.01 K/mm3 (0.00-0.05); IMMATURE GRAN PERCENT AUTO 0.2 % (0.0-0.4); LYMPHOCYTES PERCENT AUTO 19.5 % (24.0-44.0); MEAN CORPUSCULAR HEMOGLOBIN 29.4 pg (28.0-32.0); MEAN CORPUSCULAR HGB CONC 33.6 g/dl (32.0-36.0); MEAN CORPUSCULAR VOLUME 87.3 fl (83.0-99.0); MEAN PLATELET VOLUME 9.7 fl (9.4-12.4); MONOCYTES ABSOLUTE AUTO 0.7 K/mm3 (0.0-0.8); MONOCYTES PERCENT AUTO 13.3 % (0.0-8.0); NEUTROPHILS ABSOLUTE AUTO 3.4 K/mm3 (1.8-7.7); NEUTROPHILS PERCENT AUTO 65.4 % (41.0-71.0); PLATELET COUNT,PLT 167 K/mm3 (150-400); RED BLOOD CELL COUNT 5.04 M/mm3 (4.52-5.90); WHITE BLOOD CELL COUNT,WBC 5.13 K/mm3 (3.9-11.3)
[2024-02-28 10:49] LABS: BACTERIA,URINE FEW /hpf (FEW); MUCUS,URINE MODERATE /hpf (FEW); RBC,URINE 0-5 /hpf (0-5); SQUAMOUS EPITHELIAL CELLS,UR 0-5 /hpf (0-5); WBC,URINE 0-5 /hpf (0-5)
[2024-02-28 10:56] LABS: A/G RATIO 0.9 (1-2); ALBUMIN 3.4 g/dl (3.4-5.0); ANION GAP 15.9 (5-15); BILIRUBIN TOTAL 0.3 mg/dL (0.2-1.0); BUN/CREATININE RATIO 14.7 (14-18); CALCIUM 7.9 mg/dL (8.5-10.1); CREATININE 1.7 mg/dL (0.7-1.3); EST CRCL DRUG DOSING (CG) 33.88 mL/min; MAGNESIUM 2.1 mg/dL (1.8-2.4); POTASSIUM,K 3.9 mEq/L (3.5-5.1)
[2024-02-28] MEDS: Sodium Chloride 0.9% 10 ML Syringe FLUSH ONE (11:26)
[2024-02-28] MEDS: Iopamidol 612 MG/ML 100 ML Bottle IVPUSH ONE (11:26)
[2024-02-28] MEDS: Sodium Chloride 0.9% 1,000 ML IV ONE (11:32)
[2024-02-28] MEDS: Pantoprazole 40 MG in Sodium Chloride 0.9% 100 ML IV ONE (11:32)
[2024-02-28 19:22] VITALS: BP 115/55; PULSE 60
== END 2024-02-28 12:26 | disposition home or self-care (01) ==
LOC: JD.ED 09:40
DX: A08.4 Viral intestinal infection, unspecified (principal); I12.9 Hypertensive chronic kidney disease with stage 1 through stage 4 chronic kidney disease, or unspecified chronic kidney disease; N18.9 Chronic kidney disease, unspecified; E86.9 Volume depletion, unspecified; E78.00 Pure hypercholesterolemia, unspecified; K21.9 Gastro-esophageal reflux disease without esophagitis; Z90.49 Acquired absence of other specified parts of digestive tract; Z79.899 Other long term (current) drug therapy; Z88.0 Allergy status to penicillin; Z88.6 Allergy status to analgesic agent; Z88.5 Allergy status to narcotic agent; Z88.8 Allergy status to other drugs, medicaments and biological substances
CPT/HCPCS: 36415; 74177; 80053; 80307; 81001; 83690; 83735; 85025; 86850; 86900; 86901; 96365; 99285; J2470; J3490; J7030; Q9967

== ENCOUNTER 2024-06-06 13:00 | Emergency (ER) | payer OTHER ==
[2024-06-06] MEDS: Albuterol/Ipratropium 3.0-0.5 MG/3 ML Neb Soln NEB ONE ×2 (13:46→16:34)
[2024-06-06 13:52] LABS: BASOPHILS PERCENT AUTO 0.3 % (0.0-1.0); EOSINOPHILS PERCENT AUTO 0.3 % (0.0-6.0); HEMATOCRIT 40.8 % (42.0-52.0); HEMOGLOBIN 13.7 gm/dl (14.0-18.0); IMMATURE GRAN ABSOLUTE AUTO 0.04 K/mm3 (0.00-0.05); IMMATURE GRAN PERCENT AUTO 0.4 % (0.0-0.4); LYMPHOCYTES ABSOLUTE AUTO 0.8 K/mm3 (1.0-4.8); MEAN CORPUSCULAR HEMOGLOBIN 29.3 pg (28.0-32.0); MEAN CORPUSCULAR HGB CONC 33.6 g/dl (32.0-36.0); MEAN CORPUSCULAR VOLUME 87.2 fl (83.0-99.0); MONOCYTES PERCENT AUTO 9.4 % (0.0-8.0); NEUTROPHILS ABSOLUTE AUTO 8.3 K/mm3 (1.8-7.7); NEUTROPHILS PERCENT AUTO 81.6 % (41.0-71.0); PLATELET COUNT,PLT 170 K/mm3 (150-400); RED BLOOD CELL COUNT 4.68 M/mm3 (4.52-5.90); WHITE BLOOD CELL COUNT,WBC 10.15 K/mm3 (3.9-11.3)
[2024-06-06 14:27] LABS: A/G RATIO 0.9 (1-2); ALBUMIN 3.5 g/dl (3.4-5.0); ANION GAP 14.3 (5-15); BILIRUBIN TOTAL 0.5 mg/dL (0.2-1.0); BUN/CREATININE RATIO 11.1 (14-18); CALCIUM 8.6 mg/dL (8.5-10.1); CREATININE 1.8 mg/dL (0.7-1.3); EST CRCL DRUG DOSING (CG) 33.15 mL/min; POTASSIUM,K 4.3 mEq/L (3.5-5.1); PROTEIN TOTAL,TP 7.3 g/dl (6.4-8.2)
[2024-06-06 14:50] LABS: CORONAVIRUS COVID-19 NAA POSITIVE (NEGATIVE); INFLUENZA A NAA NEGATIVE (NEGATIVE); RESPIRATORY SYNCYTIAL VIR NAA NEGATIVE (NEGATIVE)
[2024-06-06 17:00] VITALS: BP 157/67; PULSE 87
== END 2024-06-06 17:01 | disposition home or self-care (01) ==
LOC: JD.ED 13:00
DX: U07.1 COVID-19 (principal); E78.00 Pure hypercholesterolemia, unspecified; I10 Essential (primary) hypertension; J45.909 Unspecified asthma, uncomplicated; K21.9 Gastro-esophageal reflux disease without esophagitis; Z86.16 Personal history of COVID-19; Z90.49 Acquired absence of other specified parts of digestive tract; Z79.899 Other long term (current) drug therapy; Z88.8 Allergy status to other drugs, medicaments and biological substances; Z88.6 Allergy status to analgesic agent; Z88.5 Allergy status to narcotic agent; Z88.0 Allergy status to penicillin
CPT/HCPCS: 0241U; 36415; 71046; 80053; 83880; 84484; 85025; 93005; 94640; 99284; J7620-GY

== ENCOUNTER 2024-11-08 21:33 | Emergency (ER) | payer OTHER ==
[2024-11-08 21:46] VITALS: BP 172/83; PULSE 64
[2024-11-08] MEDS ORDERED: Sodium Chloride 0.9% 10 ML Syringe FLUSH PRN (22:00)
[2024-11-08 22:18] LABS: BASOPHILS PERCENT AUTO 0.4 % (0.0-1.0); EOSINOPHILS ABSOLUTE AUTO 0.3 K/mm3 (0.0-0.4); EOSINOPHILS PERCENT AUTO 3.1 % (0.0-6.0); HEMOGLOBIN 13.4 gm/dl (14.0-18.0); IMMATURE GRAN ABSOLUTE AUTO 0.02 K/mm3 (0.00-0.05); IMMATURE GRAN PERCENT AUTO 0.2 % (0.0-0.4); LYMPHOCYTES ABSOLUTE AUTO 2.6 K/mm3 (1.0-4.8); LYMPHOCYTES PERCENT AUTO 32.1 % (24.0-44.0); MEAN CORPUSCULAR HEMOGLOBIN 29.5 pg (28.0-32.0); MEAN CORPUSCULAR HGB CONC 33.5 g/dl (32.0-36.0); MEAN CORPUSCULAR VOLUME 87.9 fl (83.0-99.0); MEAN PLATELET VOLUME 10.1 fl (9.4-12.4); MONOCYTES ABSOLUTE AUTO 0.9 K/mm3 (0.0-0.8); MONOCYTES PERCENT AUTO 11.3 % (0.0-8.0); NEUTROPHILS ABSOLUTE AUTO 4.3 K/mm3 (1.8-7.7); NEUTROPHILS PERCENT AUTO 52.9 % (41.0-71.0); PLATELET COUNT,PLT 198 K/mm3 (150-400); RED BLOOD CELL COUNT 4.55 M/mm3 (4.52-5.90); WHITE BLOOD CELL COUNT,WBC 8.14 K/mm3 (3.9-11.3)
[2024-11-08 22:26] LABS: INR 0.93; PROTHROMBIN TIME 9.9 SECONDS (9.7-12.0)
[2024-11-08 22:27] LABS: PTT,PARTIAL THROMBOPLSTIN TIME 27.8 SECONDS (21.7-31.4)
[2024-11-08 22:50] LABS: ALBUMIN 3.5 g/dl (3.4-5.0); ANION GAP 14.4 (5-15); BILIRUBIN TOTAL 0.2 mg/dL (0.2-1.0); CALCIUM 8.7 mg/dL (8.5-10.1); EST CRCL DRUG DOSING (CG) 29.38 mL/min; MAGNESIUM 1.9 mg/dL (1.8-2.4); POTASSIUM,K 4.4 mEq/L (3.5-5.1); PROTEIN TOTAL,TP 6.9 g/dl (6.4-8.2)
[2024-11-08] MEDS: Acetaminophen 325 MG Tab PO ONE (23:21)
== END 2024-11-08 23:34 | disposition home or self-care (01) ==
LOC: JD.ED 21:33
DX: R51.9 Headache, unspecified (principal); N28.9 Disorder of kidney and ureter, unspecified; N48.29 Other inflammatory disorders of penis; E78.00 Pure hypercholesterolemia, unspecified; I10 Essential (primary) hypertension; Z88.0 Allergy status to penicillin; Z88.5 Allergy status to narcotic agent; Z88.8 Allergy status to other drugs, medicaments and biological substances; Z88.6 Allergy status to analgesic agent; Z79.51 Long term (current) use of inhaled steroids; Z79.899 Other long term (current) drug therapy; Z79.01 Long term (current) use of anticoagulants; Z86.16 Personal history of COVID-19
CPT/HCPCS: 36415; 70450; 80053; 82550; 82947; 83735; 84484; 85025; 85610; 85730; 93005; 99284; A9270; 93010